=== PATIENT | female | born 1935 | race Caucasian/White ===

== ENCOUNTER 2020-06-10 09:25 | Outpatient (CLI) | payer MEDICARE | END 2020-06-10 09:26 | disposition short-term general hospital (02) | LOC: EMS 09:25 | PROVIDERS: ATTEND Surgery | DX: M25.571 Pain in right ankle and joints of right foot (principal); S82.891A Other fracture of right lower leg, initial encounter for closed fracture; W01.0XXA Fall on same level from slipping, tripping and stumbling without subsequent striking against object, initial encounter; Y93.01 Activity, walking, marching and hiking; Y92.832 Beach as the place of occurrence of the external cause | CPT/HCPCS: A0425; A0428; A0429 ==

== ENCOUNTER 2020-06-10 09:37 | Emergency (ER) | payer MEDICARE ==
--- NOTE | 2020-06-10 10:12 | XRAY Report ---
PROCEDURE: Ankle 3 View RT INDICATIONS: fall, R ankle pain TECHNIQUE: 3 views of the ankle were acquired. COMPARISON: None FINDINGS: Bones: There is a moderately displaced spiral fracture of the distal fibula at the level of the synde smosis. There is medial widening of the ankle mortise. Mildly displaced posterior malleolar fracture with anterior widening of the tibiotalar joint and slight posterior subluxation. There is probable fr acture of the os trigonum. Probable tiny avulsion fracture off the medial malleolus. Soft tissues: Moderate anterior and lateral soft tissue swelling. No tibiotalar joint effusion. Ach illes tendon appears normal. IMPRESSION: 1. Mild to moderately displaced bimalleolar fracture with probable medial malleolar avulsion. 2. Posterior and lateral subluxation at the tibiotalar joint widening the ankle mortise. Reviewed by: Nata Clark MD on 06/10/2020 10:11 AM PDT Approved by: Nata Clark MD on 06/10/2020 10:11 AM PDT Station ID: [id number]
[2020-06-10] MEDS ORDERED: SODIUM CHLORIDE 0.9% 1,000 ML IV STA (10:16)
--- NOTE | 2020-06-10 10:18 | ED Physician Documentation ---
PD HPI LOWER EXT INJURY - Stated complaint Stated Complaint: ANKLE INJURY - Chief complaint Chief Complaint: Ext Problem - History obtained from History obtained from: Patient - History of Present Illness PD HPI LOW EXT INJURY LOCATION: Right Type of injury: Twist Where injury occurred: Home Timing - onset: Today Timing - details: Abrupt onset Pain level max: 10 Pain level now: 6 Improved by: Rest, Ice, Immobilization Worsened by: Moving, Palpating Associated symptoms: No: Weakness, Numbness, Tingling, Swelling Contributing factors: No: Anticoagulated - Additional information Additional information: 85-year-old female with a right ankle injury while walking [place] the beach today. Worse with movement, better with rest. She states that she slipped on seaweed and twisted the ankle. Review of Systems Ten Systems: 10 systems reviewed and negative Constitutional: denies: Fever, Chills Cardiac: denies: Chest pain / pressure Respiratory: denies: Cough GI: denies: Vomiting, Diarrhea Skin: denies: Rash Musculoskeletal: denies: Neck pain, Back pain Neurologic: denies: Headache PD PAST MEDICAL HISTORY - Past Medical History Past Medical History: Yes Cardiovascular: Hypertension, High cholesterol Endocrine/Autoimmune: HyPOthyroidism - Allergies Allergies/Adverse Reactions: Allergies Allergy/AdvReac Type Severity Reaction Status Date / Time erythromycin base AdvReac Mild Rash Verified 06/10/20 12:53 [From Erythrocin] - Living Situation Living Situation: reports: With family Living Arrangement: reports: At home - Social History Does the pt smoke?: No Does the pt have substance abuse?: No - Family History Family history: reports: Non contributory PD ED PE NORMAL - Vitals Vital signs reviewed: Yes - General General: Alert and oriented X 3, No acute distress, Well developed/nourished - HEENT HEENT: Atraumatic, Moist mucous membranes - Neck Neck: Supple, no meningeal sign, No bony TTP - Cardiac Cardiac: RRR - Respiratory Respiratory: No respiratory distress, Clear bilaterally - Abdomen Abdomen: Soft, Non tender, Non distended - Derm Derm: Warm and dry - Extremities Extremities: Other (Tender to palpation over the medial and lateral malleoli of the right ankle minimal swelling. Positive ecchymosis. mild deformity. Neurovascular intact. Otherwise normal exam of the right lower extremity and foot.) - Neuro Neuro: Alert and oriented X 3 - Psych Psych: Normal mood, Normal affect Results - Vitals Vitals: Vital Signs - 24 hr 06/10/20 06/10/20 06/10/20 09:40 10:47 12:04 Temperature 36.6 C Heart Rate 79 72 67 Respiratory 17 16 17 Rate Blood Pressure 109/73 98/64 101/57 L O2 Saturation 100 94 100 Oxygen O2 Source Room air - EKG (time done) 1029 Rate: Rate (enter#) (72) Rhythm: NSR [place]: Normal Intervals: Normal [place] QRS: Normal, LVH Ischemia: Other (repol) - Labs Labs: Laboratory Tests 06/10/20 06/10/20 10:45 10:45 WBC 9.2 RBC 4.06 L Hgb 13.0 Hct 38.3 MCV 94.3 MCH 32.0 H MCHC 33.9 RDW 13.0 Plt Count 182 MPV 12.9 H Neut # (Auto) 7.3 H Lymph # (Auto) 1.0 L [place] # (Auto) 0.7 Eos # (Auto) 0.1 Baso # (Auto) 0.1 Absolute Nucleated RBC 0.00 Nucleated RBC % 0.0 Sodium 135 Potassium 4.4 Chloride 99 L Carbon Dioxide 25 Anion Gap 11.0 BUN 21 H Creatinine 1.0 Estimated GFR (MDRD) 53 L Glucose 114 H Calcium 9.4 Total Bilirubin 0.9 AST 28 ALT 19 Alkaline Phosphatase 48 Total Protein 7.4 Albumin 4.2 Globulin 3.2 Albumin/Globulin Ratio 1.3 Lipase 34 - Rads (name of study) R ankle xray Radiology: Prelim report reviewed, EMP read contemporaneously, See rad report (1. Mild to moderately displaced bimalleolar fracture with probable medial malleolar avulsion. 2. Posterior and lateral subluxation at the tibiotalar joint widening the ankle mortise. ) Procedures - Splint (location) R LE Splint applied by: Physician, Tech Type of splint: Short leg, Posterior Other: Patient tolerated well, No complications, Neurovascular intact PD MEDICAL DECISION MAKING - ED course Complexity details: reviewed results, re-evaluated patient, considered differential, d/w patient, d/w computing consultant ED course: 85-year-old female with a right ankle fracture, moderately displaced bimalleolar fracture with posterior and lateral subluxation of the tibiotalar joint. Placed in a posterior splint. Discussed with Dr. Mcgee, orthopedics on-call who will come evaluate the patient. Patient has been n.p.o. since last night. Neurovascularly intact. Dr. Armando was consulted, patient has severe . She spoke with anesthesia, LANDY Molina, who states that she lacks the ability to care for a patient with aortic stenosis in the operating room here and she will need to be transferred. Discussed the case with [facility] - Dr. Madrigal, [facility] who will attempt to transfer the patient. Dr. Hill and Dr. Penaloza accept in transfer to [facility] in [place] at 1300 - COBRA forms completed. Departure - Departure Disposition: 02 Transfer Acute Care Hosp Clinical Impression: Bimalleolar ankle fracture Qualifiers: Encounter type: initial encounter Fracture type: closed Laterality: right Qualified Code(s): S82.841A - Displaced bimalleolar fracture of right lower leg, initial encounter for closed fracture Subluxation of ankle joint Qualifiers: Encounter type: initial encounter Laterality: right Qualified Code(s): S93.01XA - Subluxation of right ankle joint, initial encounter Condition: Stable
--- NOTE | 2020-06-10 10:35 | XRAY Report ---
PROCEDURE: Chest 1 View X-Ray INDICATIONS: pre-op TECHNIQUE: One view of the chest was acquired. COMPARISON: none FINDINGS: Surgical changes and devices: None. Lungs and pleura: No pleural effusions or pneumothorax. Lungs are clear. Mediastinum: Mediastinal contours appear normal. Heart size is is enlarged. Bones and chest wall: No suspicious bony lesions. Overlying soft tissues appear unremarkable. IMPRESSION: Cardiology without acute pulmonary process. Reviewed by: Linda Shultz MD on 06/10/2020 10:34 AM PDT Approved by: Linda Shultz MD on 06/10/2020 10:34 AM PDT Station ID: [id number]
[2020-06-10 10:52] LABS: BASOPHILS # (AUTO) 0.1 10^3/uL (0.0-0.1); BASOPHILS % (AUTO) 0.7 %; EOSINOPHILS # (AUTO) 0.1 10^3/uL (0.0-0.7); EOSINOPHILS % (AUTO) 1.4 %; MEAN CORPUSCULAR HGB CONC 33.9 g/dL (32.0-36.0); MEAN CORPUSCULAR VOLUME 94.3 fL (81.0-99.0); MEAN PLATELET VOLUME 12.9 fL (7.9-10.8); MONOCYTES # (AUTO) 0.7 10^3/uL (0.0-1.0); MONOCYTES % (AUTO) 7.4 %; NEUTROPHILS # (AUTO) 7.3 10^3/uL (1.5-6.6); NEUTROPHILS % (AUTO) 78.8 %; PLT - PLATELET COUNT 182 10^3/uL (130-450); RED BLOOD COUNT 4.06 10^6/uL (4.20-5.40); WHITE BLOOD COUNT 9.2 x10^3/uL (4.8-10.8)
[2020-06-10 11:08] LABS: ALBUMIN 4.2 g/dL (3.2-5.5); ALBUMIN/GLOBULIN RATIO 1.3 (1.0-2.2); BILIRUBIN,TOTAL 0.9 mg/dL (0.2-1.0); CALCIUM 9.4 mg/dL (8.5-10.3); TOTAL PROTEIN 7.4 g/dL (6.7-8.2)
--- NOTE | 2020-06-10 11:50 | CONSULTATION NOTE ---
Referring Provider Name of Referring Provider:: Tova Suero Consult Date: 06/10/20 Chief Complaint - Chief Complaint Chief Complaint: Ankle Injury History of Present Illness - Admitted From Admitted From:: Not admitted, will transfer to another facility - History Obtained From History obtained from: Patient - History of Present Illness HPI Comment/Other: Patient is a mai 85-year old female with a history of hypertension, hyperlipidemia, and severe aortic stenosis who presents to the ED with moderate to severe right ankle pain after a fall this morning. Mrs. Vanegas and her Nasir was enjoying their morning walk at a nearby beach when she slipped on a wet rock and seaweed. She immediately felt pain in her right ankle and thought she had sprained it. She tried standing and walking but was not able to bear weight without feeling severe pain and stiffness. Upon seeing swelling on her ankle, she knew she had "broken something". Her then brought her to the ED to be evaluated. XR of right foot shows bimalleolar fracture with possible medial malleolar avulsion. She is currently experiencing 6/10 pain and stiffness of her right foot, otherwise she feels good overall. Patient states being very independent at home and has no problem doing house work, though she is mainly sedentary. She drives without issues and does not use a walker or any assistive devices. She can walk up a flight of stairs and a few blocks on flat ground without feeling short of breath. However, she expresses feeling a little bit more fatigued lately, especially when standing up and cooking for more than 30 minutes. She is attributing this to the worsening of her aortic stenosis, which was diagnosed years ago. Patient declined aortic valve replacement and is currently being followed by a eggs inspector in [facility]. Patient has a history of hypertension that is well under controlled with home medications. She denies any weight changes or feeling chills, fever. No headache, changes to vision, cough, or sore throat. Denies dyspnea, chest pain, orthopnea, PND or pedal edema. No nausea, vomiting, melena, hematuria. She reports having chronic hip and knee pain and occasional right shoulder muscle aches, but does not take anything for it. Denies numbness or tingling of her extremities. History - Past Medical History Cardiovascular: reports: Hypertension, High cholesterol, Valve disorder (Severe aortic stenosis per echo) Respiratory: reports: None Neuro: reports: None Endocrine/Autoimmune: reports: HyPOthyroidism GI: reports: GERD (hiatal hernia), Hemorrhoids MANAGER CARE MANAGEMENT: reports: None : reports: Incontinence HEENT: reports: Chronic vision loss, Chronic hearing loss Psych: reports: None Musculoskeletal: reports: Other (hip joint and knee pain with increased weight bearing activities. Occasional shoulder muscle pain.) Derm: reports: None MRSA Hx?: No Other Past Medical History: Aortic Stenosis. - Past Surgical History /MANAGER CARE MANAGEMENT: reports: Hysterectomy, Other Cardiovascular: reports: Other - Family & Social History Family History: Mother: , Father: Living arrangement: At home (She lives in [place] with her ) Living Situation: With spouse/s.o. - Substance History Use: Uses substance without health or social issues: NONE Abuse: Recurrent use of substance despite neg consequences: NONE Dependence: Experiences withdrawal or developed tolerances: NONE - POLST Patient has POLST: Yes POLST Status: Full Code Meds/Allgy - Allergies Allergies/Adverse Reactions: Allergies Allergy/AdvReac Type Severity Reaction Status Date / Time erythromycin base AdvReac Mild Rash Verified 06/10/20 12:53 [From Erythrocin] Review of Systems - Eyes Eyes: reports: Corrective lenses - Ears, Nose & Throat Ears, Nose & Throat: reports: Hearing aids, Postnasal drainage - Gastrointestinal Gastrointestinal: reports: Reflux/heartburn (Occasional heartburn due to hiatal hernia. Does not take any medications for it.) - Genitourinary Genitourinary: reports: Incontinence (mild urinary incontinence.) - Musculoskeletal Musculoskeletal: reports: Muscle aches, Joint pain (Knee and hip joint pain with increased walking distance.) - Integumentary Integumentary: reports: Dryness - Endocrine Endocrine: reports: Other (hypothyroidism--on levothyroxine) - All Other Systems All Other Systems: reports: Reviewed and negative - Other Findings Other Findings: distant history of breast cancer and lumpectomy Exam - Vital Signs Reviewed Vital Signs: Yes Vital Signs: Vital Signs x48h Temp Pulse Resp BP Pulse Ox 06/10/20 10:47 72 16 98/64 94 06/10/20 09:40 36.6 C 79 17 109/73 100 - Physical Exam General Appearance: positive: No acute distress, Alert, Other (conversing, a ppropriate. Lying flat in bed.) Eyes Bilateral: positive: Normal inspection, PERRL, No lid inflammation, Conjunctivae nml, No scleral icterus ENT: positive: Other (moist mucous membrane) Neck: positive: Nml inspection, Thyroid nml, Trachea midline Respiratory: positive: Chest non-tender, No respiratory distress, Breath sounds nml, Other (breath sounds clear bilaterally. Rate regular and unlabored.) Cardiovascular: positive: Regular rate & rhythm, No gallop (Grade 4 systolic murmur noted.) Peripheral Pulses: positive: 2+ Abdomen: positive: Non-tender, Nml bowel sounds, No distention Skin: positive: Color nml, No rash, Warm, Dry Extremities: positive: Other (Ecchymosis evident on right ankle. Tenderness of the lateral and medial malleoli to palpation of the right ankle.) Neurologic/Psychiatric: positive: Oriented x3, Sensation nml (Sensation to touch intact in bilateral LE) Conclusion/Plan - Diagnosis Diagnosis: Bimalleolar fracture, fall at beach, preop evaluation - Plan Plan: Per XR of right foot, patient has bimallelor fracture with possible medial malleolar avulsion. Results were discussed with patient and her . Because of patient's age and nature of her injury and planned surgery, she will likely be going to a rehab center after her procedure before going home. Both patient and her states understanding. A preoperative evaluation with NSQIP and Revised Cardiac Risk Index was done. Her NSQIP serious complication was above average (5.1%), nursing or rehab facility risk score is 44.9%. Though her Revised Cardiac Risk Index shows Class l risk, she has severe aortic stenosis. This was discussed with the anesthesia team in which they expressed concern and does not feel comfortable putting this patient under general anesthesia/epidural. Plan is to transfer patient to a higher level care facility ([facility]) where they are more well-equipped to handle any complications during or after surgery. - Lab Results Lab results reviewed: Yes Fish Bones: 06/10/20 10:45 06/10/20 10:45 - Diagnostic Imaging Results Diagnostic Imaging Results: positive: Final report reviewed
[2020-06-10] MEDS ORDERED: MORPHINE 2 MG/ML CARPUJECT IVP STA ×2 (11:54→14:24)
[2020-06-10 14:31] VITALS: BP 106/77
== END 2020-06-10 14:35 | disposition short-term general hospital (02) ==
LOC: ED 09:37
DX: S82.841A Displaced bimalleolar fracture of right lower leg, initial encounter for closed fracture (principal); S93.01XA Subluxation of right ankle joint, initial encounter; X50.1XXA Overexertion from prolonged static or awkward postures, initial encounter; Y93.01 Activity, walking, marching and hiking; Y92.832 Beach as the place of occurrence of the external cause; I35.0 Nonrheumatic aortic (valve) stenosis; I10 Essential (primary) hypertension; E78.5 Hyperlipidemia, unspecified; E03.9 Hypothyroidism, unspecified; K44.9 Diaphragmatic hernia without obstruction or gangrene; Z08 Encounter for follow-up examination after completed treatment for malignant neoplasm; Z85.3 Personal history of malignant neoplasm of breast
CPT/HCPCS: 29515; 36415; 71045; 80053; 83690; 85025; 93005

== ENCOUNTER 2020-06-10 14:33 | Outpatient (CLI) | payer MEDICARE | END 2020-06-10 14:34 | disposition short-term general hospital (02) | LOC: EMS 14:33 | PROVIDERS: ATTEND Surgery | DX: S82.891A Other fracture of right lower leg, initial encounter for closed fracture (principal); W01.0XXA Fall on same level from slipping, tripping and stumbling without subsequent striking against object, initial encounter; Y93.01 Activity, walking, marching and hiking; Y92.832 Beach as the place of occurrence of the external cause ==